=== PATIENT | male | born 1965 | race Caucasian/White ===

== ENCOUNTER → 2016-10-24 | Outpatient (CLI) | payer BC, OTHER ==
--- NOTE | 2016-10-24 12:23 | DIAGNOSTIC IMAGING REPORT ---
CERVICAL SPINE 5 VIEWS HISTORY: Pain POSTERIOR NECK PAIN COMPARISON: None. FINDINGS: The cervical spine is visualized from C1 through the superior endplate of T1. There is no fracture. No subluxation. Disc spaces are preserved. Prevertebral soft tissues and the atlantodens interval are intact. IMPRESSION: No fracture or subluxation within the cervical spine. Electronically signed by: Mat Mccoy M.D. 10/24/2016 12:22 PM Dictated Date/Time: 10/24/2016 12:21 PM
== END | disposition home or self-care (01) ==
LOC: C.RDSM 14:12
PROVIDERS: ATTEND Physician Assistant
DX: M54.2 Cervicalgia (principal)

== ENCOUNTER → 2017-01-04 | Outpatient (CLI) | payer BC ==
[2017-01-04 12:32] LABS: BASO % 0.4 %; BASO ABS # 0.02 K/uL (0-0.2); COMPLETE YES; EOS % 2.5 %; HEMATOCRIT 46.5 % (42-52); IG% 0.2 %; LYMPH % 36.7 %; LYMPH ABS # 1.77 K/uL (1.2-3.4); MEAN CELL VOLUME 90.5 fL (80-100); MEAN CORPUSCULAR HEMOGLOBIN 31.1 pg (25-34); MEAN CORPUSCULAR HGB CONC 34.4 g/dl (32-36); NEUT % 49.2 %; PLATELET COUNT 222 K/uL (130-400); RED BLOOD COUNT 5.14 M/uL (4.7-6.1); WHITE BLOOD COUNT 4.82 K/uL (4.8-10.8)
[2017-01-04 13:13] LABS: ALT/SGPT 37 U/L (12-78); AST/SGOT 35 U/L (15-37); BLOOD UREA NITROGEN 16 mg/dl (7-18); BUN/CREATININE RATIO 16.9 (10-20); CALCIUM 9.2 mg/dl (8.5-10.1); CARBON DIOXIDE 30 mmol/L (21-32); CHLORIDE 106 mmol/L (98-107); CHOLESTEROL 210 mg/dl (0-200); CREATININE 0.94 mg/dl (0.60-1.40); GLUCOSE 88 mg/dl (70-99); POTASSIUM 4.2 mmol/L (3.5-5.1); SODIUM 140 mmol/L (136-145); TRIGLYCERIDES 91 mg/dl (0-150); VERY LOW DENSITY LIPOPROT CALC 18 mg/dl
[2017-01-04 13:17] LABS: ALB/GLOB RATIO 1.3 (0.9-2); ALKALINE PHOSPHATASE 86 U/L (45-117); CHOLESTEROL/HDL RATIO 3.3; HDL CHOLESTEROL 64 mg/dl; LDL CHOLESTEROL CALCULATED 128 mg/dl; PROSTATE SPECIFIC ANTIGEN 0.402 ng/ml (0.000-4.000)
--- NOTE | 2017-01-10 11:27 | CODING QUERY MEDICAL NECESSITY ---
SUPPORTING DIAGNOSIS NEEDED A supporting diagnosis is required for the test/procedure performed on this patient in order for us to be reimbursed by the patient's insurance. Please provide a supporting diagnosis for the following test/procedure listed below next to the test name along with your signature. *If there is no additional diagnosis for this patient that would support the following test/procedure please document that below next to the test/procedure. Test(s)/Procedure(s) that require a supporting diagnosis: * PSA DIAGNOSIS: Provider Signature: Date: Thank you Rosy Cosby [employer] Once completed, please kindly fax back to [phone] For questions please call [phone]
== END | disposition home or self-care (01) ==
LOC: C.LAB1850 11:18
PROVIDERS: ATTEND Internal Medicine
DX: Z00.00 Encounter for general adult medical examination without abnormal findings (principal); Z12.5 Encounter for screening for malignant neoplasm of prostate

== ENCOUNTER 2024-04-28 14:35 | Observation (INO) ==
[2024-04-28 15:05] LABS: Basophils # (auto) 0.03 K/uL (0.00-0.20); Basophils % (auto) 0.6 %; Eosinophils # (auto) 0.07 K/uL (0.00-0.50); Eosinophils % (auto) 1.5 %; Hematocrit (blood only) 41.7 % (42.0-52.0); Hemoglobin 14.2 g/dl (14.0-18.0); Lymphocytes # (auto) 1.46 K/uL (1.20-3.40); Lymphocytes % (auto) 30.9 %; Mean Corpuscular Hemoglobin 30.2 pg (25.0-34.0); Mean Corpuscular Hgb Conc 34.1 g/dL (32.0-36.0); Mean Corpuscular Volume 88.7 fL (80.0-100.0); Mean Platelet Volume 9.5 fL (9.4-12.4); Monocytes # (auto) 0.62 K/uL (0.11-0.59); Monocytes % (auto) 13.1 %; Neutrophils # (auto) 2.55 K/uL (1.40-6.50); Neutrophils % (auto) 53.9 %; Platelet Count 196 K/uL (130-400); RDW Coefficient of Variation 12.7 % (11.5-14.5); RDW Standard Deviation 41.3 fL (36.4-46.3); White Blood Count 4.73 K/ul (4.8-10.8)
[2024-04-28 15:23] LABS: Albumin Globulin Ratio 1.8 (0.9-2); Albumin Level 4.4 gm/dl (3.4-5.0); BUN Creatinine Ratio 16.3 (10-20); Calcium 9.4 mg/dl (8.6-10.3); Creatinine Clr Calc Pharmacy 73.5 ml/min; Globulin 2.4 gm/dl (2.5-4.0); Potassium 4.1 mmol/L (3.5-5.1); Total Protein 6.8 gm/dl (6.0-8.3)
--- NOTE | 2024-04-28 15:26 | Emergency Department Note ---
Impression & Plan Chest pain ADMIT ED Provider Note HPI: History obtained from patient. The patient is a 58-year-old gentleman with history of aortic stenosis, presents the emergency department with a chief complaint of left-sided chest discomfort that he experienced just earlier today when he was at work. Patient states he did have outpatient testing done just in the past several weeks that revealed an elevated total calcium score on CT of the chest as well as an cardiac echo that he states revealed some aortic stenosis. Patient states that he has mild 2 out of 10 chest discomfort to the left side of his chest on arrival that he describes as dull. Patient states he is an active jogger and he did jog both on Sunday and Sunday and did not have any issues with chest pain. On arrival here to the ED the patient is mildly hypertensive but otherwise hemodynamically stable, he appears to be in no acute distress. ROS: - Per HPI Differential Diagnosis: Acute coronary syndrome, symptomatic aortic stenosis, acid reflux, pulmonary embolism, aortic dissection, pneumothorax, heart block, amongst other potential pathologies. *Outpatient medications and allergy history reviewed. PE: General: Alert HEENT: Normocephalic, trachea midline Eyes: Extraocular eye movement is intact, no scleral erythema Pulmonary: Clear to auscultation bilaterally, no wheezing Cardio: Bradycardic rate with regular rhythm GI: Abdomen is soft to palpation : No suprapubic tenderness MSK: No evidence of trauma or malformation of the extremities, no edema Skin: No evidence of rash Neuro: Alert, no focal deficits Psychiatric: Cooperative INDEPENDENT INTERPRETATIONS: monitoring engineer: (As interpreted by myself): - An order was placed for continuous cardiac monitoring - Patient was noted to be in sinus rhythm with a rate of 52 EKG: (As interpreted by myself): Rate: 58 Rhythm: Sinus rhythm Intervals: SC interval indeterminate, otherwise within normal limits, second- degree heart block noted ST changes: No ST elevation Time: 1448 Chest x-ray: (As interpreted by myself): No acute abnormalities Interventions provided in ED: -Aspirin Medical Decision Making: IV was established and lab work obtained, patient was placed on property assessment monitor. Lab work shows a mild leukopenia, hemoglobin is normal, platelet count is normal, CMP does not show any evidence of any critical findings, troponin is negative x 1. EKG per my interpretation shows sinus rhythm with a rate of 58, there does appear to be likely a second degree heart block on EKG. I do not see any acute ischemic changes. Patient did recently have an elevated outpatient coronary CT with an elevated calcium score greater than 500, he also was noted to have a history of bicuspid aortic valve with some calcified stenosis. On my reassessment the patient states his pain is very mild but he still does have some chest pain. At this point I think would be reasonable to admit him given his risk factors and elevated calcium score for further risk stratification testing. Patient was in agreement to this plan, I discussed the above findings with the on-call midlevel provider for the [facility] hospitalist service, Rosas Vazquez PA-C, and the patient was placed for admission in stable condition to the service of Dr. Zamora. Consultants/Discussions held with other healthcare providers: -Hospitalist, Dr. Zamora Disposition discussion held by myself with: -Patient Diagnosis: 1. Chest pain, acute, nonspecific 2. Elevated calcium score testing performed as an outpatient 3. Secondary heart block on EKG, acute Disposition: Admission Mat Gracia DO Emergency Medicine Past Med/Surg History Problem List (Updated 04/28/24 @ 18:52 by Mat Gracia DO) Chest pain (Acute) Elevated lipoprotein A level Bicuspid aortic valve Mild aortic stenosis Hyperlipidemia (Chronic) Medical History (Updated 04/28/24 @ 18:52 by Mat Gracia DO) Benign paroxysmal positional vertigo Multiple thyroid nodules Personal history of colonic polyps Family history of colon cancer Osteoarthritis neck Hyperlipidemia Mild aortic stenosis per echocardiogram 2020 Migraine HX-due to stress Surgical History Hx of excision of mass from the neck (benign) H/O wisdom tooth extraction History of herniorrhaphy as a child History of colonoscopy Family History (Updated 03/06/24 @ 08:03 by KARY Bernabe) Aunt Family hx of colon cancer Family history of diabetes mellitus Colorectal cancer Father Coronary heart disease Stroke syndrome Mother Lung cancer Myocardial infarction Grandfather (Paternal) Myocardial infarction Other No family history of adverse response to anesthesia Denies family history of Ovarian cancer Prostate cancer Breast cancer Social History (Updated 03/06/24 @ 08:06 by KARY Bernabe) Smoking Status: Unknown if ever smoked Second Hand Exposure: No ( A CHILD); Do You Dip or Chew Tobacco: No; Hx Alcohol Use: Yes Alcohol type: beer and wine Hx Substance Use: No Preferred Language: Thai Communication Ability: Effective Visual Impairment: Limited Hearing Ability: Normal Manager Content Required: No Beliefs That Will Affect Care: None marital status: Single Current Living Situation: Alone current occupational status: employed current occupation: [employer] Feels Safe at Home: Yes Childhood Exposure to Second-Hand Smoke: Yes caffeine: Yes Dental Care, Regularly: Yes Physical Activity Frequency: Daily Seatbelt Use: always Sunscreen Use: Yes Assistive Devices: Glasses Allergies Allergies Allergy/AdvReac Type Severity Reaction Status Date / Time No Known Allergies Allergy Verified 03/06/24 07:55 Home Meds Home Medications Medication Instructions Recorded Confirmed multivitamin 1 tab PO QAM 09/13/18 04/28/24 omega 0-bbm-yxd-fish oil 1,000 mg 1 cap PO UD 09/13/18 04/28/24 (120 mg-180 mg) capsule (Fish Oil) Previous Rx's Medication Instructions Recorded finasteride 1 mg tablet (Propecia) 1 mg PO DAILY #30 tabs 03/06/24 rosuvastatin 20 mg tablet 20 mg PO DAILY #90 tabs 04/23/24 Results & Data (ED) Vital Signs Vital Signs - 24 hr 04/28/24 14:37 04/28/24 15:07 04/28/24 15:07 Temperature 36.9 C Temperature Source Temporal Artery Scan Pulse Rate 66 Pulse Rate [Apical] 55 L Respiratory Rate 20 16 Respiratory Effort / Characteristics Non-Labored Spontaneous Non-Labored Spontaneous Respiratory Depth Normal Normal Respiratory Pattern Blood Pressure 143/90 H Blood Pressure [Left Arm] 162/97 H Blood Pressure Mean 107 Blood Pressure Mean [Left Arm] 118 Pulse Oximetry 96 98 97 Oxygen Delivery Method Room Air Room Air Room Air Sepsis Recent Fever Within 48 Hours No Sepsis New/Unexplained Change in Mental Status No Sepsis Action Taken by Nursing No Action Required 04/28/24 15:07 04/28/24 15:11 04/28/24 15:36 Temperature Temperature Source Pulse Rate 58 L Pulse Rate [Apical] 55 L Respiratory Rate 16 Respiratory Effort / Characteristics Non-Labored Respiratory Depth Normal Respiratory Pattern Blood Pressure Blood Pressure [Left Arm] 162/97 H Blood Pressure Mean Blood Pressure Mean [Left Arm] 118 Pulse Oximetry 99 97 Oxygen Delivery Method Room Air Sepsis Recent Fever Within 48 Hours Sepsis New/Unexplained Change in Mental Status Sepsis Action Taken by Nursing 04/28/24 16:48 04/28/24 18:19 Temperature Temperature Source Pulse Rate Pulse Rate [Apical] 47 L 47 L Respiratory Rate 16 16 Respiratory Effort / Characteristics Non-Labored Respiratory Depth Normal Normal Respiratory Pattern Regular Blood Pressure Blood Pressure [Left Arm] 167/83 H 134/79 Blood Pressure Mean Blood Pressure Mean [Left Arm] 111 97 Pulse Oximetry 97 95 Oxygen Delivery Method Room Air Room Air Sepsis Recent Fever Within 48 Hours Sepsis New/Unexplained Change in Mental Status Sepsis Action Taken by Nursing Laboratory Data 04/28/24 14:49 04/28/24 14:49 Lab Results 04/28/24 04/28/24 Range/Units 14:49 16:05 WBC 4.73 L (4.8-10.8) K/ul RBC 4.70 (4.70-6.10) M/uL Hgb 14.2 (14.0-18.0) g/dl Hct 41.7 L (42.0-52.0) % MCV 88.7 (80.0-100.0) fL MCH 30.2 (25.0-34.0) pg MCHC 34.1 (32.0-36.0) g/dL RDW Std Deviation 41.3 (36.4-46.3) fL RDW Coeff of Isabel 12.7 (11.5-14.5) % Plt Count 196 (130-400) K/uL MPV 9.5 (9.4-12.4) fL Immature Gran % (Auto) 0.0 % Neut % (Auto) 53.9 % Lymph % (Auto) 30.9 % Gates % (Auto) 13.1 % Eos % (Auto) 1.5 % Baso % (Auto) 0.6 % Neut # (Auto) 2.55 (1.40-6.50) K/uL Lymph # (Auto) 1.46 (1.20-3.40) K/uL Gates # (Auto) 0.62 H (0.11-0.59) K/uL Eos # (Auto) 0.07 (0.00-0.50) K/uL Baso # (Auto) 0.03 (0.00-0.20) K/uL Immature Gran # (Auto) 0.00 L (0.01-0.20) K/uL PT 10.7 (9.0-12.0) Seconds INR 1.0 (0.9-1.1) APTT 27 (21-31) Seconds PTT Ratio 1.0 Sodium 138 (136-145) mmol/L Potassium 4.1 (3.5-5.1) mmol/L Chloride 104 (98-107) mmol/L Carbon Dioxide 28 (21-32) mmol/L Anion Gap 6 (3-11) BUN 14 (6-23) mg/dl Creatinine 0.86 (0.6-1.4) mg/dl Est Cr Clr Drug Dosing 73.5 ml/min eGFR 99.13 BUN/Creatinine Ratio 16.3 (10-20) Glucose 103 H (70-99(Fasting)) mg/dl Calcium 9.4 (8.6-10.3) mg/dl Total Bilirubin 1.0 (0.2-1.0) mg/dl AST 76 H (13-39) U/L ALT 58 H (7-52) U/L Alkaline Phosphatase 73 (34-104) U/L Troponin I High Sens 7.2 4.1 (0-20) pg/ml Total Protein 6.8 (6.0-8.3) gm/dl Albumin 4.4 (3.4-5.0) gm/dl Globulin 2.4 L (2.5-4.0) gm/dl Albumin/Globulin Ratio 1.8 (0.9-2) Administered Medications Discontinued Medications Aspirin (Aspirin Chew 324 Mg) 324 mg PO NOW STA Stop: 04/28/24 16:38 Last Admin: 04/28/24 16:55 Dose: 324 mg Documented By: [facility] Imaging Data Radiologist's Impression: Chest X-Ray 04/28/24 14:37 XR chest 1V not portable CLINICAL HISTORY: Chest pain, nonspecific COMPARISON STUDY: Chest radiograph October 24, 2019. FINDINGS: Lung volumes are normal. Lungs are clear. There is no pneumothorax or pleural effusion. Cardiac size is stable. Mediastinal contours are normal. There is no evidence for pulmonary edema. IMPRESSION: No acute cardiopulmonary findings. ACT 112: Negative or not required by law. Electronically signed by: Brandon Hassan M.D. 04/28/2024 4:00 PM Discharge Plan Visit Data Chief Complaint: Chest Pain Stated Complaint: CHEST PAIN, LT ARM PAIN ED Provider: Mat Gracia Discharge Problem: Chest pain Forms Stand Alone Forms: [facility] [place] Prescriptions Prescriptions: No Action rosuvastatin 20 mg tablet 20 mg PO DAILY Qty: 90 3RF finasteride [Propecia] 1 mg tablet 1 mg PO DAILY Qty: 30 0RF multivitamin Tablet 1 tab PO QAM Rx Instructions: ON OCC omega 7-uik-lmm-fish oil [Fish Oil] 1,000 mg (120 mg-180 mg) Capsule 1 cap PO UD Rx Instructions: PM-ON OCC Referrals Referrals: Denia Caro MD [Primary Care Provider] -
[2024-04-28 15:28] LABS: Troponin I High Sensitivity 7.2 pg/ml (0-20)
[2024-04-28 15:36] LABS: Partial Thromboplastin Time 27 Seconds (21-31); Prothrombin Time 10.7 Seconds (9.0-12.0)
--- NOTE | 2024-04-28 16:01 | XRay Report ---
XR chest 1V not portable CLINICAL HISTORY: Chest pain, nonspecific COMPARISON STUDY: Chest radiograph October 24, 2019. FINDINGS: Lung volumes are normal. Lungs are clear. There is no pneumothorax or pleural effusion. Car diac size is stable. Mediastinal contours are normal. There is no evidence for pulmonary edema. IMPRESSION: No acute cardiopulmonary findings. ACT 112: Negative or not required by law. Electronically signed by: Brandon Hassan M.D. 04/28/2024 4:00 PM
--- NOTE | 2024-04-28 16:43 | History & Physical Report ---
<Statement entered by Marcela Morgan MD - 04/28/24 19:05> I have reviewed vital signs, chart notes, labs and imaging. I have personally seen, evaluated and examined the patient. I have also discussed the management of the patient with the RAUL and I agree with the exam findings documented in the history and physical examination and the documented assessment and plan unless otherwise stated below. 58-year-old with mild dull left-sided chest pain radiating to left arm, several cardiac risk factors including hyperlipidemia, age, family history of coronary artery disease, high coronary calcium score presentation slightly suspicious for angina in that it is nonexertional, initial cardiac enzymes are negative, EKG reassuring but with mild ST elevation probably related to LVH I have low suspicion for other serious causes of chest pain such as pulmonary embolism or aortic dissection: He has no hypoxia or dyspnea and has physiologic bradycardia. Pain is not severe or tearing and is not radiating to the back, radial pulses are equal. Pain might be musculoskeletal related to recent weightlifting however his chest wall is nontender on palpation. At least moderate risk of Mace in near future based on risk factors. treadmill stress echo would be appropriate, unless judged to be high risk by supervisor costuming in which case angiography may be warranted. Date of Service April 28, 2024 Assessment & Plan (1) Chest pain: Plan: Patient presented on 04/28 for mild, constant chest pain + left arm soreness Troponin 7.2 --> 4.[address] cardiac calcium score: 516 (severe risk for plaque buildup) He was subsequently started on aspirin 81 mg daily on Monday 04/23 after finding of these results Concern due to significant family history of cardiac events, with multiple family members dying of heart attacks in their early 60s Echocardiogram done on 04/04/2024 revealed LVEF at 60 to 65% and moderate to severe aortic calcification; no significant change when compared to 02/2021 Patient reports he is still having dull chest pain on admission (which he rates 1 out of 10) Discussed with patient, and offered nitroglycerin, however he wishes to defer nitro at this time, and will let us know if any of his symptoms change Nitro 0.4 mg SL tab x 1 PRN on-call for worsening anginal symptoms Cardiology consult appreciated for potential stress test vs diagnostic cardiac catheterization Continue aspirin 81 mg daily Continuous telemetry monitoring (2) Hyperlipidemia: Plan: Most recent lipid panel on 03/06/2024 with values WNL Continue statin Plan Disposition: Obs - admit to [facility] telemetry Full code Regular diet VTE PPx: Low risk, SCDs History of Present Illness Chief Complaint: Chest pain Primary Care Provider: Denia Caro MD Wilbert is a 58-year-old male with PMH of hyperlipidemia, aortic stenosis, and bicuspid aortic valve. He presented on 04/28 for mild, constant chest pain and left arm soreness. Patient had a CT cardiac calcium score done last week that revealed severe plaque buildup: 516, and patient is concerned that this might be contributing to his symptoms. Initially, he is concerned that it might be psychosomatic, however the chest pain has been consistent throughout the day. He first noticed it this morning; it did not wake him from sleep. The pain does radiate into his left arm, however he does note that he was lifting weights Sunday night; 15 pound dumbbells around 220 times; concerned he might of strained it. No recent injuries to the chest wall or arms. He rates the pain as a 2/10, and reports that it never got above this level. He reports that the pain is not debilitating, and he has not taken any additional medications for the pain. He did a personal stress test today by "bounding" up the stairs, he does report that he felt winded afterwards, which was new for him. Normally, the patient is very active/physically fit. He ran in a 4K race on Sunday, and then did a track workout on Sunday and reports that he had no chest pain during either the race or the workout. However, he does have significant family history of cardiac issues on both sides. For instance, his maternal cousin of a maker at 61 years old. His paternal uncle also of an MN in his sleep at 63 years old. He has also had other male family members of MIs later in life. Patient denies any rashes, bruising, or tick bites on his body; he reports that he avoids trail runs. He took all of his regular morning medicine today including his atorvastatin, which was recently increased from 10 mg to 20 mg daily (he is currently finishing his bottle of 10 mg tablets but taking it BID). He was also started on aspirin 81 mg daily on Monday 04/[address] his CT cardiac calcium results. Patient denies smoking and tobacco use. He does endorse recent alcohol use on Sunday (drinks of wine). No history of GERD or indigestion to his knowledge. He does report a mild weight gain; he reports he is usually steady around 125 to 130 pounds, but was around 135 today. He has been on a caloric restrictive diet with intermittent fasting over the past 2.5 years. Patient is hypertensive at 162/97 and mildly bradycardic at 55 bpm at time of admission; vitals otherwise stable. ED course: Aspirin 324 mg p.o. ROS: Patient endorses mild chest pain (constant), left arm soreness, intermittent dizziness (which patient attributes to vertigo), NGO after climbing three flights of stairs today, abdominal cramping, increased urinary frequency / nocturia (which patient attributes to drinking water before bed). Patient denies fever, chills, night-sweats, headache, chest palpitations, pleuritic CP, SOB at rest, cough, N/V/D, burning with urination, blood in the urine/stool, redness/swelling in the legs, or numbness/tingling in the arms or legs. Allergies Allergy/AdvReac Type Severity Reaction Status Date / Time No Known Allergies Allergy Verified 03/06/24 07:55 Home Medications Medication Instructions Recorded Confirmed Type multivitamin 1 tab PO QAM 09/13/18 04/28/24 History omega 2-cdb-zyz-fish oil 1,000 mg 1 cap PO UD 09/13/18 04/28/24 History (120 mg-180 mg) capsule (Fish Oil) finasteride 1 mg tablet (Propecia) 1 mg PO DAILY #30 tabs 03/06/24 04/28/24 Rx rosuvastatin 20 mg tablet 20 mg PO DAILY #90 tabs 04/23/24 04/28/24 Rx Past Med/Surg History Problem List (Updated 04/28/24 @ 16:43 by Rosas Vazquez PA-C) Chest pain Elevated lipoprotein A level Bicuspid aortic valve Mild aortic stenosis Hyperlipidemia (Chronic) Medical History (Updated 04/28/24 @ 16:43 by Rosas Vazquez PA-C) Benign paroxysmal positional vertigo Multiple thyroid nodules Personal history of colonic polyps Family history of colon cancer Osteoarthritis neck Hyperlipidemia Mild aortic stenosis per echocardiogram 2020 Migraine HX-due to stress Surgical History Hx of excision of mass from the neck (benign) H/O wisdom tooth extraction History of herniorrhaphy as a child History of colonoscopy Family History (Updated 03/06/24 @ 08:03 by KARY Bernabe) Aunt Family hx of colon cancer Family history of diabetes mellitus Colorectal cancer Father Coronary heart disease Stroke syndrome Mother Lung cancer Myocardial infarction Grandfather (Paternal) Myocardial infarction Other No family history of adverse response to anesthesia Denies family history of Ovarian cancer Prostate cancer Breast cancer Social History (Updated 03/06/24 @ 08:06 by KARY Bernabe) Smoking Status: Unknown if ever smoked Second Hand Exposure: No ( A CHILD); Do You Dip or Chew Tobacco: No; Hx Alcohol Use: Yes Alcohol type: beer and wine Hx Substance Use: No Preferred Language: Ecuadorean Communication Ability: Effective Visual Impairment: Limited Hearing Ability: Normal Radiator Core Tester Required: No Beliefs That Will Affect Care: None marital status: Single Current Living Situation: Alone current occupational status: employed current occupation: [employer] Feels Safe at Home: Yes Childhood Exposure to Second-Hand Smoke: Yes caffeine: Yes Dental Care, Regularly: Yes Physical Activity Frequency: Daily Seatbelt Use: always Sunscreen Use: Yes Assistive Devices: Glasses Review of Systems Review of Systems: See HPI above Physical Exam Physical Exam: General: no acute distress; pleasant affect; non-toxic appearing; well- nourished; cooperative HEENT: normocephalic, atraumatic; no scleral icterus; PERRLA w/ EOMs intact; vision and hearing grossly intact Neck: supple; no lymphadenopathy; trachea midline Skin: warm, dry without signs of tenting; no cyanosis; no rashes, bruising, lesions, or erythema noted CV: chest wall NTP; RR, bradycardic around 51 bpm; S1/S2 normal; mild 1/6 systolic ejection murmur auscultated at the second ICS MCL; pulses intact and symmetric at radial, DP, and PT Lungs: no acute respiratory distress; symmetrical chest wall expansion; clear breath sounds across all lung rodriguez w/o adventitious sounds; no wheezing ABD: Soft, NTP; BS present; no rebound/guarding; no distention MSK: no tics or fasciculations; no edema noted in the LEs b/l, nonerythematous Neuro: A&Ox3; normal mood and affect; fluent speech; no focal deficits; sensation grossly intact in the LEs b/l Results & Data Results & Data Vital Signs (Past 12 Hours) Vital Signs Temp Pulse Pulse Resp BP BP Pulse Ox 04/28/24 15:36 55 L 16 162/97 H 97 04/28/24 15:11 58 L 04/28/24 15:07 99 04/28/24 15:07 55 L 16 162/97 H 97 04/28/24 15:07 98 04/28/24 14:37 36.9 C 66 20 143/90 H 96 O2 Del Method 04/28/24 15:36 04/28/24 15:11 04/28/24 15:07 Room Air 04/28/24 15:07 Room Air 04/28/24 15:07 Room Air 04/28/24 14:37 Room Air Laboratory Results Abnormal lab results 04/28/24 Range/Units 14:49 WBC 4.73 L (4.8-10.8) K/ul Hct 41.7 L (42.0-52.0) % Gregory # (Auto) 0.62 H (0.11-0.59) K/uL Immature Gran # (Auto) 0.00 L (0.01-0.20) K/uL Glucose 103 H (70-99(Fasting)) mg/dl AST 76 H (13-39) U/L ALT 58 H (7-52) U/L Globulin 2.4 L (2.5-4.0) gm/dl Diagnostic Findings Chest X-Ray 04/28/24 14:37 XR chest 1V not portable CLINICAL HISTORY: Chest pain, nonspecific COMPARISON STUDY: Chest radiograph October 24, 2019. FINDINGS: Lung volumes are normal. Lungs are clear. There is no pneumothorax or pleural effusion. Cardiac size is stable. Mediastinal contours are normal. There is no evidence for pulmonary edema. IMPRESSION: No acute cardiopulmonary findings. ACT 112: Negative or not required by law. Electronically signed by: Brandon Hassan M.D. 04/28/2024 4:00 PM ECG Additional Comments: ECG revealed sinus rhythm with second-degree AV block (Mobitz 1) at 58 bpm; QTc 408 Code Status & VTE Plan Code Status Full code VTE Prophylaxis Plan VTE Prophylaxis will be ordered: Yes PG Care Time/CCT Total # of Minutes Spent Total Time Spent with Patient: Total time spent is greater than 50% in coordination of care (as documented) at patient's floor/unit and/or counseling patient: [place] [address] INT INP/OBS CARE 2/55MIN Patient Type Established History Comprehensive Exam Comprehensive Medical Decision Making Moderate Complexity Diagnoses Chest pain R07.9 Pure hypercholesterolemia E78.00; E78.0 Hyperlipidemia type: pure hypercholesterolemia (2) Hyperlipidemia Hyperlipidemia type: pure hypercholesterolemia Qualified Code(s): E78.00 - Pure hypercholesterolemia, unspecified; E78.0 - Pure hypercholesterolemia
[2024-04-28] MEDS: ASPIRIN CHEW 324 MG PO STA (16:55)
[2024-04-28] MEDS ORDERED: ONDANSETRON INJ 2 MG/ML 2 ML VIAL IV PRN (19:32)
[2024-04-28] MEDS ORDERED: NITROGLYCERIN SL 0.4 MG/TAB TAB SL PRN (19:32)
[2024-04-28] MEDS: ACETAMINOPHEN 325 MG TAB PO PRN (22:39)
[2024-04-28 22:40] VITALS: RESP 18
[2024-04-29] MEDS: ROSUVASTATIN CALCIUM 20 MG TAB PO SCH (02:11)
[2024-04-29 06:36] LABS: Hematocrit (blood only) 41.1 % (42.0-52.0); Hemoglobin 14.2 g/dl (14.0-18.0); Mean Corpuscular Hemoglobin 30.7 pg (25.0-34.0); Mean Corpuscular Hgb Conc 34.5 g/dL (32.0-36.0); Platelet Count 203 K/uL (130-400); RDW Coefficient of Variation 12.9 % (11.5-14.5); RDW Standard Deviation 42.4 fL (36.4-46.3); Red Blood Count 4.62 M/uL (4.70-6.10); White Blood Count 5.81 K/ul (4.8-10.8)
[2024-04-29 06:57] LABS: Albumin Globulin Ratio 1.7 (0.9-2); Albumin Level 3.9 gm/dl (3.4-5.0); Bilirubin,Total 1.2 mg/dl (0.2-1.0); Calcium 8.8 mg/dl (8.6-10.3); Creatinine Clr Calc Pharmacy 73.5 ml/min; Globulin 2.3 gm/dl (2.5-4.0); Potassium 3.9 mmol/L (3.5-5.1); Total Protein 6.2 gm/dl (6.0-8.3)
[2024-04-29] MEDS ORDERED: ROSUVASTATIN CALCIUM 20 MG TAB PO SCH (09:00)
--- NOTE | 2024-04-29 10:30 | Cardiology Consultation ---
Date of Consultation April 29, 2024 Assessment & Plan (1) Chest pain: (2) Bicuspid aortic valve: (3) Mild aortic stenosis: (4) Hyperlipidemia: (5) Elevated coronary artery calcium score: (6) Mobitz (type) I (Wenckebach's) atrioventricular block: Plan ASSESSMENT/PLAN: 1. Chest pain: Longstanding of 24 hours with negative high-sensitivity troponin x 2. Chest pain is not suspicious of ACS. Given his elevated calcium score, he prefers to undergo stress testing. Stress echo ordered. No urgent indication for coronary angiography. AST chronically mildly elevated. 2. Aortic stenosis with probable bicuspid aortic valve: Nonsevere stenosis. Should not account for symptoms at this stage. He follows with his PCP. Recommend CT imaging of the thoracic aorta to evaluate for aortopathy, especially with his atypical chest pain. 3. Elevated coronary calcium score: Agree with aspirin 81 mg daily. Agree with high intensity statin therapy. PCP is monitoring lipids closely. Since his last LDL evaluation, which is still elevated in the setting, his statin has been adjusted. 4. Dyslipidemia: Continue high intensity statin therapy. Repeat labs with PCP. Mediterranean diet. Continue regular cardiovascular exercise. 5. Mobitz 1: Asymptomatic. Discussed with patient. No indication for pacemaker at this time. As he runs on paths at times, recommend Lyme evaluation prior to discharge. Ordered. 6. Disposition: Recommend CTA as above at some point, as well as stress echo. If unremarkable, can be discharged home from a cardiac perspective. Plan of care communicated with primary hospitalist, Dr. Brink. Addendum: CTA performed without evidence of thoracic aortic aneurysm per radiology. Stress echo imaging unremarkable. Stress ECG was abnormal but quickly resolved by 1 minute 15 seconds into recovery. Chest pain remains atypical and not consistent with ischemia. Thank you for allowing me to participate in the care of your patient. Please call for any other questions or concerns. Sincerely, Jeronimo Paredes M.D. History of Present Illness Reason for Consultation: chest pain Requesting Physician: Ciaran Brink MD Attending Physician: Ciaran Brink MD History of Present Illness Mr. Chavarria is a 58-year-old gentleman with a history significant for bicuspid aortic valve, mild aortic stenosis, dyslipidemia, and elevated coronary artery calcium score. He was hospitalized on 04/28/2024 with chest discomfort. Through his PCP office, he underwent coronary artery calcium score on 04/04/2024. He was found to have a calcium score of 516. Aspirin therapy and high intensity statin therapy were recommended at this time. He was not experiencing any chest discomfort or shortness of breath, despite activity. He ran in a half marathon 2 weeks ago and finished 44th. He also ran in a 4K and did track training as recent as 4 days ago. With exercise, he had not noted any chest pain or shortness of breath out of proportion to his activity level. On 04/28/2024, while at work, he developed a left-sided chest pain described as a dull pain. He looked up the symptoms of a myocardial infarction and became concerned but also was concerned that it may all be "psychosomatic." The dull pain has remained and was still present this morning when evaluated at the bedside for consultation. He states that he wants a stress test and he wants to be discharged today as he has several things scheduled tomorrow. He has not noted any trigger for the chest discomfort but it does improve with exertion. He denies any recent syncope or near syncope. He admits that he had syncope greater than 30 years ago while in a hot tub for too long. He walks back and forth to work) 6 to 7 days/week. He describes occasional hemorrhoidal or fissure bleed, but no significant melena, hematochezia, or hematuria. He has not noted any rash or tick bite. Review of systems: As above. Family history: No known premature CAD in first-degree relatives. Paternal uncles x 2 had SC in their 60s. Paternal grandfather had SC. Maternal cousin had SC. Social history: He denies tobacco abuse. Occasional alcohol. Lives alone. Never . No children. 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 Unaccompanied. Allergies Allergy/AdvReac Type Severity Reaction Status Date / Time No Known Allergies Allergy Verified 03/06/24 07:55 Home Medications Medication Instructions Recorded Confirmed Type multivitamin 1 tab PO QAM 09/13/18 04/28/24 History omega 6-ryo-cef-fish oil 1,000 mg 1 cap PO UD 09/13/18 04/28/24 History (120 mg-180 mg) capsule (Fish Oil) finasteride 1 mg tablet (Propecia) 1 mg PO DAILY #30 tabs 03/06/24 04/28/24 Rx rosuvastatin 20 mg tablet 20 mg PO DAILY #90 tabs 04/23/24 04/28/24 Rx Problem List (Updated 04/29/24 @ 14:51 by Mo Paredes MD) Mobitz (type) I (Wenckebach's) atrioventricular block Elevated coronary artery calcium score Chest pain (Acute) Elevated lipoprotein A level Bicuspid aortic valve Mild aortic stenosis Hyperlipidemia (Chronic) Patient History Medical History Benign paroxysmal positional vertigo Multiple thyroid nodules Personal history of colonic polyps Family history of colon cancer Osteoarthritis neck Hyperlipidemia Mild aortic stenosis per echocardiogram 2020 Migraine HX-due to stress Surgical History Hx of excision of mass from the neck (benign) H/O wisdom tooth extraction History of herniorrhaphy as a child History of colonoscopy Family History (Updated 03/06/24 @ 08:03 by KARY Bernabe) Aunt Family hx of colon cancer Family history of diabetes mellitus Colorectal cancer Father Coronary heart disease Stroke syndrome Mother Lung cancer Myocardial infarction Grandfather (Paternal) Myocardial infarction Other No family history of adverse response to anesthesia Denies family history of Ovarian cancer Prostate cancer Breast cancer Social History (Updated 03/06/24 @ 08:06 by KARY Bernabe) Smoking Status: Never smoker Second Hand Exposure: No ( A CHILD); Do You Dip or Chew Tobacco: No; Hx Alcohol Use: Yes Alcohol type: wine Hx Substance Use: No Preferred Language: Albanian Communication Ability: Effective Visual Impairment: Limited Hearing Ability: Normal Educational Coordinator Required: No Beliefs That Will Affect Care: None marital status: Single Current Living Situation: Alone Current Living Situation Comment: Lives @ Home current occupational status: employed current occupation: [employer] Other Information That Helps Us Care for You: No Feels Safe at Home: Yes Safety Concerns: Feels Safe At This Time Childhood Exposure to Second-Hand Smoke: Yes caffeine: Yes Dental Care, Regularly: Yes Physical Activity Frequency: Daily Seatbelt Use: always Sunscreen Use: Yes Assistive Devices: Glasses Physical Exam Physical Exam: Gen.: No acute distress. Alert. HEENT: Anicteric sclera. Neck: No JVD. No bruits. Normal carotid upstrokes bilaterally. Cardiac: Regular in the 50s bpm. Normal S1-S2. 1/6 systolic murmur. Pulmonary: Clear to auscultation bilaterally without wheezes, rales, or rhonchi. Abdomen: Soft, nontender, nondistended, with normoactive bowel sounds. No bruits noted. Extremities: 2+ radial pulses bilaterally. 2+ posterior tibialis pulses bilaterally. No edema or cyanosis. Chest: Nontender to palpation. Results & Data Vital Signs (Past 12 Hours) Vital Signs Temp Pulse Pulse Pulse Resp BP BP 04/29/24 08:44 36.5 C 52 L 18 128/80 04/29/24 07:28 49 L 04/29/24 04:47 56 L 18 143/72 H 04/29/24 04:07 36.7 C 57 L 18 121/70 04/29/24 00:25 61 04/29/24 00:09 36.7 C 58 L 18 132/84 04/28/24 23:44 61 18 127/79 04/28/24 22:53 65 04/28/24 22:30 67 18 122/77 Pulse Ox O2 Del Method 04/29/24 08:44 97 Room Air 04/29/24 07:28 04/29/24 04:47 95 Room Air 04/29/24 04:07 95 Room Air 04/29/24 00:25 04/29/24 00:09 97 Room Air 04/28/24 23:44 98 Room Air 04/28/24 22:53 04/28/24 22:30 98 Laboratory Results Laboratory Results - last 24 hr 04/28/24 04/28/24 04/29/24 14:49 16:05 05:37 WBC 4.73 L 5.81 RBC 4.70 4.62 L Hgb 14.2 14.2 Hct 41.7 L 41.1 L MCV 88.7 89.0 MCH 30.2 30.7 MCHC 34.1 34.5 RDW Std Deviation 41.3 42.4 RDW Coeff of Isabel 12.7 12.9 Plt Count 196 203 MPV 9.5 10.0 Immature Gran % (Auto) 0.0 Neut % (Auto) 53.9 Lymph % (Auto) 30.9 King % (Auto) 13.1 Eos % (Auto) 1.5 Baso % (Auto) 0.6 Neut # (Auto) 2.55 Lymph # (Auto) 1.46 King # (Auto) 0.62 H Eos # (Auto) 0.07 Baso # (Auto) 0.03 Immature Gran # (Auto) 0.00 L PT 10.7 INR 1.0 APTT 27 PTT Ratio 1.0 Sodium 138 140 Potassium 4.1 3.9 Chloride 104 106 Carbon Dioxide 28 27 Anion Gap 6 7 BUN 14 12 Creatinine 0.86 0.86 Est Cr Clr Drug Dosing 73.5 73.5 eGFR 99.13 99.13 BUN/Creatinine Ratio 16.3 14.0 Glucose 103 H 97 Calcium 9.4 8.8 Total Bilirubin 1.0 1.2 H AST 76 H 61 H ALT 58 H 50 Alkaline Phosphatase 73 61 Troponin I High Sens 7.2 4.1 Total Protein 6.8 6.2 Albumin 4.4 3.9 Globulin 2.4 L 2.3 L Albumin/Globulin Ratio 1.8 1.7 Diagnostic Findings CTA chest 04/29/2024: No aortic aneurysm. Mild atherosclerotic changes in the aorta and coronary arteries. CT cardiac calcium score 04/04/2024: LM 50; LAD 524; circumflex 100; RCA 43; total 516. Echo 04/04/2024: Normal LV size, wall motion, systolic function. EF 60-65%. Mild aortic stenosis (PV 2.5; MG 12; BROOKS 1.5;. Cannot exclude bicuspid valve. PCP note reviewed from 03/05/2024. History and physical report reviewed. Telemetry personally reviewed: Sinus with intermittent Mobitz 1. No significant pauses. Medications Administered Current Inpatient Medications Acetaminophen (Acetaminophen 325 Mg Tab) 650 mg PO Q4H PRN PRN Reason: Pain or Fever Stop: 05/28/24 19:31 Last Admin: 04/28/24 22:39 Dose: 650 mg Aspirin (Aspirin 81 Mg Ectab) 81 mg PO DAILY [facility] Stop: 05/29/24 08:59 Miscellaneous (Finasteride [Propecia] 1 Mg Tablet~ Order Awaiting Action) 1 each N/A QS [facility] Stop: 05/29/24 00:00 Last Admin: 04/29/24 10:26 Dose: Not Given Nitroglycerin (Nitroglycerin Sl 0.4 Mg/Tab Tab) 0.4 mg SL ONE PRN PRN Reason: Angina Ondansetron HCl (Ondansetron Inj 2 Mg/Ml 2 Ml Vial) 4 mg IV Q6H PRN PRN Reason: Nausea Stop: 05/28/24 19:31 Rosuvastatin Calcium (Rosuvastatin Calcium 20 Mg Tab) 20 mg PO HS JAIMEE Stop: 05/29/24 00:59 Last Admin: 04/29/24 02:11 Dose: 20 mg PG Care Time/CCT Total # of Minutes Spent Total Time Spent with Patient: Total time spent is greater than 50% in coordination of care (as documented) at patient's floor/unit and/or counseling patient: Coding Level of Care Code 27090 INT INP/OBS CARE 3/75MIN Diagnoses Chest pain R07.9 Bicuspid aortic valve Q23.1 Mild aortic stenosis I35.0 Pure hypercholesterolemia E78.00; E78.0 Hyperlipidemia type: pure hypercholesterolemia Elevated coronary artery calcium score R93.1 Mobitz (type) I (Wenckebach's) atrioventricular block I44.1 (4) Hyperlipidemia Hyperlipidemia type: pure hypercholesterolemia Qualified Code(s): E78.00 - Pure hypercholesterolemia, unspecified; E78.0 - Pure hypercholesterolemia
--- NOTE | 2024-04-29 10:47 | Hospitalist Progress Note ---
Date of Service April 29, 2024 Assessment & Plan (1) Chest pain: Plan: Patient presented on 04/28 for mild, constant chest pain + left arm soreness EKg shows possible Morbits type 1 Will obtain Lymes serology Also obtain CTA in view of bicuspid valve, to r/o dissection Stress test orded, appreciate cardiology recs Troponin 7.2 --> 4.[address] cardiac calcium score: 516 (severe risk for plaque buildup) He was subsequently started on aspirin 81 mg daily on Monday 04/23 after finding of these results Concern due to significant family history of cardiac events, with multiple family members dying of heart attacks in their early 60s Echocardiogram done on 04/04/2024 revealed LVEF at 60 to 65% and moderate to severe aortic calcification; no significant change when compared to 02/2021 Patient still with mild chest pain this morning06/23 (2) Hyperlipidemia: Plan: Most recent lipid panel on 03/06/2024 with values WNL Continue statin Plan Disposition: Obs - admit to [facility] telemetry Full code Regular diet VTE PPx: Low risk, SCDs Admission and Anticipated Discharge Date Admission Date: April 28, 2024 Subjective patient seen and examined, says chest pain is 2/10, wants to be discharged Review of Systems Review of Systems: All systems reviewed are negative, apart from the ones contained in the history. Physical Exam Physical Exam: The patient is awake, alert and oriented 3, well developed and well nourished, normocephalic and atraumatic, lying in bed and in no acute distress. HEENT--PERRL, EOMI, mucous membranes and oropharynx mildly dry Neck--supple. No JVD. No bruits. Thyroid normal, trachea midline, no adenopathy. Heart--normal S1 and S2. No murmurs, rubs or gallops. Lungs--clear bilaterally, no respiratory distress, no accessory muscle use. Abdomen--normal bowel sounds and soft. Extremities--no cyanosis or clubbing. No edema. Dermatologic--normal skin turgor, normal color, no abnormal lymph nodes, no rash. Neurologic--cranial nerves II through XII grossly intact. Rheumatologic--normal range of motion. Psychiatric--normal affect. Results & Data Results & Data Vital Signs (Past 12 Hours) Vital Signs Temp Pulse Pulse Pulse Resp BP BP 04/29/24 08:44 97.7 F 52 L 18 128/80 04/29/24 07:28 49 L 04/29/24 04:47 56 L 18 143/72 H 04/29/24 04:07 98.1 F 57 L 18 121/70 04/29/24 00:25 61 04/29/24 00:09 98.1 F 58 L 18 132/84 04/28/24 23:44 61 18 127/79 04/28/24 22:53 65 Pulse Ox O2 Del Method 04/29/24 08:44 97 Room Air 04/29/24 07:28 04/29/24 04:47 95 Room Air 04/29/24 04:07 95 Room Air 04/29/24 00:25 04/29/24 00:09 97 Room Air 04/28/24 23:44 98 Room Air 04/28/24 22:53 PG Care Time/CCT Total # of Minutes Spent Total Time Spent with Patient: Total time spent is greater than 50% in coordination of care (as documented) at patient's floor/unit and/or counseling patient: Coding Level of Care Code 00405 SUB INP/OBS CARE 2/35MIN Diagnoses Chest pain R07.9 Pure hypercholesterolemia E78.00; E78.0 Hyperlipidemia type: pure hypercholesterolemia Time Spent (min) 35 (2) Hyperlipidemia Hyperlipidemia type: pure hypercholesterolemia Qualified Code(s): E78.00 - Pure hypercholesterolemia, unspecified; E78.0 - Pure hypercholesterolemia
[2024-04-29] MEDS: OPTIRAY 320 125ml IV ONE (11:41)
[2024-04-29 11:47] VITALS: BP 138/85; TEMP 97.5; O2SAT 96
--- NOTE | 2024-04-29 12:48 | CT Scan Report ---
CT angio chest w con CLINICAL HISTORY: evaluate aortic aneurysm TECHNIQUE: Multidetector row helical CT of the chest was performed with angiographic protocol. Mcfadden l and sagittal reformations were obtained. Coronal and sagittal MIPS were obtained from the axial khris a set and were submitted for review. Automated dose lowering techniques and/or adjustment according to patient size were utilized for this exam. CT DOSE: 362.06 mGy.cm Comparison: Comparison is made to chest radiograph 11/27/2023 FINDINGS: Lungs and pleura: Atelectasis versus scarring is seen in the dependent portions of the lungs. Calcifi ed granulomata are seen. Heart and pericardium: Heart size is normal. No pericardial effusion. Vessels: Mild atherosclerotic changes in the aorta and coronary arteries. No aortic aneurysm is seen. Incidental note is made of the left vertebral artery originating directly from the aorta. Mediastinum and gisele: Unremarkable. Chest wall and lower neck: Unremarkable. Abdomen: Prominent nodules are seen in the thyroid. Bones: Unremarkable. IMPRESSION: No aortic aneurysm is seen. ACT 112: Negative or not required by law. Electronically signed by: Jesus Craig M.D. 04/29/2024 12:47 PM
[2024-04-29] MEDS: ASPIRIN 81 MG ECTAB PO SCH (14:05)
--- NOTE | 2024-04-29 14:35 | XCELERA ---
[id number] [email or web address]\[id number]
--- NOTE | 2024-04-29 14:57 | Discharge Summary ---
Date of Service April 29, 2024 Admission HPI Per Admitting Provider Wilbert is a 58-year-old male with PMH of hyperlipidemia, aortic stenosis, and bicuspid aortic valve. He presented on 04/28 for mild, constant chest pain and left arm soreness. Patient had a CT cardiac calcium score done last week that revealed severe plaque buildup: 516, and patient is concerned that this might be contributing to his symptoms. Initially, he is concerned that it might be psychosomatic, however the chest pain has been consistent throughout the day. He first noticed it this morning; it did not wake him from sleep. The pain does radiate into his left arm, however he does note that he was lifting weights Sunday night; 15 pound dumbbells around 220 times; concerned he might of strained it. No recent injuries to the chest wall or arms. He rates the pain as a 2/10, and reports that it never got above this level. He reports that the pain is not debilitating, and he has not taken any additional medications for the pain. He did a personal stress test today by "bounding" up the stairs, he does report that he felt winded afterwards, which was new for him. Normally, the patient is very active/physically fit. He ran in a 4K race on Sunday, and then did a track workout on Sunday and reports that he had no chest pain during either the race or the workout. However, he does have significant family history of cardiac issues on both sides. For instance, his maternal cousin of a maker at 61 years old. His paternal uncle also of an [place] in his sleep at 63 years old. He has also had other male family members of MIs later in life. Patient denies any rashes, bruising, or tick bites on his body; he reports that he avoids trail runs. He took all of his regular morning medicine today including his atorvastatin, which was recently increased from 10 mg to 20 mg daily (he is currently finishing his bottle of 10 mg tablets but taking it BID). He was also started on aspirin 81 mg daily on Monday 04/[address] after he [address] his CT cardiac calcium results. Patient denies smoking and tobacco use. He does endorse recent alcohol use on Sunday (drinks of wine). No history of GERD or indigestion to his knowledge. He does report a mild weight gain; he reports he is usually steady around 125 to 130 pounds, but was around 135 today. He has been on a caloric restrictive diet with intermittent fasting over the past 2.5 years. Patient is hypertensive at 162/97 and mildly bradycardic at 55 bpm at time of admission; vitals otherwise stable. ED course: Aspirin 324 mg p.o. ROS: Patient endorses mild chest pain (constant), left arm soreness, intermittent dizziness (which patient attributes to vertigo), NGO after climbing three flights of stairs today, abdominal cramping, increased urinary frequency / nocturia (which patient attributes to drinking water before bed). Patient denies fever, chills, night-sweats, headache, chest palpitations, pleuritic CP, SOB at rest, cough, N/V/D, burning with urination, blood in the urine/stool, redness/swelling in the legs, or numbness/tingling in the arms or legs. Admission Exam (Per Admitting) Constitutional The patient is awake, alert and oriented 3, well developed and well nourished, normocephalic and atraumatic, lying in bed and in no acute distress. HEENT--PERRL, EOMI, mucous membranes and oropharynx mildly dry Neck--supple. No JVD. No bruits. Thyroid normal, trachea midline, no adenopathy. Heart--normal S1 and S2. No murmurs, rubs or gallops. Lungs--clear bilaterally, no respiratory distress, no accessory muscle use. Abdomen--normal bowel sounds and soft. Extremities--no cyanosis or clubbing. No edema. Dermatologic--normal skin turgor, normal color, no abnormal lymph nodes, no rash. Neurologic--cranial nerves II through XII grossly intact. Rheumatologic--normal range of motion. Psychiatric--normal affect. Discharge Data Consultations 04/28/24 16:47 ED Decision to Admit Stat 04/28/24 17:23 Consult Cardiology Routine Hospital Course (1) Chest pain: Patient presented on 04/28 for mild, constant chest pain + left arm soreness EKg shows possible Morbits type 1 Will obtain Lymes serology Also obtain CTA in view of bicuspid valve, to r/o dissection Stress test was normal Troponin 7.2 --> 4.[address] cardiac calcium score: 516 (severe risk for plaque buildup) He was subsequently started on aspirin 81 mg daily on Monday 04/23 after finding of these results Concern due to significant family history of cardiac events, with multiple family members dying of heart attacks in their early 60s Echocardiogram done on 04/04/2024 revealed LVEF at 60 to 65% and moderate to severe aortic calcification; no significant change when compared to 02/2021 Patient still with mild chest pain this morning06/23 (2) Hyperlipidemia: Most recent lipid panel on 03/06/2024 with values WNL Continue statin Plan Disposition: Obs - admit to [facility] telemetry Full code Regular diet VTE PPx: Low risk, SCDs Coding Level of Care Code 34925 INP/OBS DISCH >30 MIN Diagnoses Chest pain R07.9 Pure hypercholesterolemia E78.00; E78.0 Hyperlipidemia type: pure hypercholesterolemia Time Spent (min) 35
[2024-04-29 15:13] VITALS: PULSE 61
--- NOTE | 2024-04-30 06:13 | Electrocardiogram Report ---
Test Reason : Blood Pressure : */* mmHG Vent. Rate : 58 BPM Atrial Rate : 64 BPM P-R Int : * ms QRS Dur : 90 ms QT Int : 416 ms P-R-T Axes : * 55 48 degrees QTcB Int : 408 ms Poor data quality, interpretation may be adversely affected Sinus rhythm with 2nd degree A-V block (Mobitz I) Minimal voltage criteria for LVH, may be normal variant ( Sokolow-Hernandez ) Abnormal ECG No previous ECGs available Confirmed by Mo Paredes ([id number]) on 04/30/2024 6:13:06 AM Referred By: Confirmed By: Mo Paredes
== END 2024-04-29 15:30 | disposition home or self-care (01) ==
LOC: ED 14:35 → EDINP 14:35 → SUATTDRO 17:23 → 2W 19:32